=== PATIENT | female | born 1975 | race Caucasian/White ===

== ENCOUNTER 2018-06-11 21:11 | Emergency (ER) | payer BC ==
[~2018-06-11] VITALS: Ht 157.5 cm; Wt 76.3 kg
[2018-06-11 21:25] VITALS: Ht 157.5 cm; Wt 76.3 kg
[2018-06-11 22:31] LABS: BASOPHIL % 0.3 % (0-2); PLATELET COUNT 309 x10^3mcL (130-400); RED CELL DISTRIBUTION WIDTH 12.8 % (11.5-14.5)
[2018-06-11 22:43] LABS: CALCIUM 9.3 mg/dL (8.5-10.1); CARBON DIOXIDE 23.7 mmol/L (21-32); CHLORIDE SERUM 102 mmol/L (98-107); CREATININE SERUM 0.8 mg/dL (0.6-1.0); GFR1 > 60 mL/min; GLUCOSE SERUM 110 mg/dL (74-106); POTASSIUM SERUM 3.6 mmol/L (3.5-5.1); SODIUM SERUM 137 mmol/L (136-145)
[2018-06-11 22:55] LABS: ALBUMIN 4.3 g/dL (3.4-5.0); ALKALINE PHOSPHATASE 64 U/L (46-116); ALT/SGPT 43 U/L (14-59); AST/SGOT 14 U/L (15-37); BILIRUBIN TOTAL 0.9 mg/dL (0.20-1.00); LIPASE 136 IU/L (73-393)
[2018-06-11 22:57] LABS: TOTAL PROTEIN, SERUM 8.4 g/dL (6.4-8.2)
[2018-06-12 00:28] LABS: UA SPECIFIC GRAVITY >1.030 (1.005-1.035); microscopic required? YES
[2018-06-12 00:29] LABS: urine erythrocyte 3+ (NEGATIVE)
[2018-06-12 01:35] VITALS: BP 134/94
== END 2018-06-12 01:35 | disposition home or self-care (01) ==
LOC: ED 21:11
PROVIDERS: Emergency Medicine
DX: N94.6 Dysmenorrhea, unspecified (principal)
CPT/HCPCS: 36415; J1885